=== PATIENT | male | born 1980 | race Two or more races ===

== ENCOUNTER 2024-08-05 05:30 | Day surgery (SDC) | payer OTHER ==
[2024-08-03 14:03] VITALS: BMI 24.2
[2024-08-05] MEDS ORDERED: PROPOFOL 20 ML ONE (11:24)
[2024-08-05] MEDS ORDERED: ROCURONIUM BROMIDE 50 MG/5 ML SYRINGE ONE ×2 (11:24→12:09)
[2024-08-05] MEDS ORDERED: MIDAZOLAM HCL 2 MG/2 ML SINGLE DOSE VIAL ONE (11:25)
[2024-08-05] MEDS ORDERED: ceFAZolin SODIUM 1 GM VIAL ONE (11:47)
[2024-08-05] MEDS ORDERED: DEXAMETHASONE SOD PHOSPHATE 4 MG/1 ML VIAL ONE (11:48)
[2024-08-05] MEDS ORDERED: ONDANSETRON 4 MG/2 ML VIAL ONE (11:48)
[2024-08-05] MEDS ORDERED: KETOROLAC TROMETHAMINE 30 MG/1 ML VIAL ONE (11:48)
[2024-08-05] MEDS: ceFAZolin SODIUM 1 GM VIAL IVPB ONE (11:50)
[2024-08-05] MEDS: BUPIVACAINE HCL/PF 0.25% (2.5MG/ML) 10 ML VIAL IJ ONE (12:01)
[2024-08-05] MEDS ORDERED: ACETAMINOPHEN INJECTION 100 ML ONE (12:06)
[2024-08-05] MEDS ORDERED: SUGAMMADEX SODIUM 200 MG/2 ML VIAL ONE (14:07)
[2024-08-05] MEDS ORDERED: ONDANSETRON 4 MG/2 ML VIAL IVPUSH PRN (14:27)
[2024-08-05] MEDS ORDERED: oxyCODONE HCL 5 MG TABLET PO PRN ×2 (14:27)
[2024-08-05] MEDS: LACTATED RINGERS SOLUTION 1,000 ML IV SCH (15:15)
[2024-08-05 16:31] VITALS: RESP 20
[2024-08-05 17:24] VITALS: BP 128/74; PULSE 84; TEMP 98
== END 2024-08-05 17:51 | disposition home or self-care (01) ==
LOC: JASU-SURG 05:30
PROVIDERS: ATTEND Surgery
PROC: 8E0W4CZ Robotic Assisted Procedure of Trunk Region, Percutaneous Endoscopic Approach (ICD-10-PCS; 2024-08-05)
PROC: 0YU54JZ Supplement Right Inguinal Region with Synthetic Substitute, Percutaneous Endoscopic Approach (ICD-10-PCS; principal; 2024-08-05 11:00)
DX: K40.90 Unilateral inguinal hernia, without obstruction or gangrene, not specified as recurrent (principal)
CPT/HCPCS: 49650; S2900; 86850; 86900; 86901; 94760; C1781; J0131